=== PATIENT | female | born 1970 | race Two or more races ===

== ENCOUNTER 2025-09-07 18:36 | Emergency (ER) | payer OTHER ==
[~2025-09-07] VITALS: Ht 162.6 cm; Wt 77.1 kg
[2025-09-07] MEDS ORDERED: VASOTEC2.5 MG (18:50)
[2025-09-07 18:52] VITALS: BP 137/87; O2SAT 99
[2025-09-07] MEDS ORDERED: CEFTRIAXONE SODIUM 1,000 MG VIAL IV ONE (19:30)
[2025-09-07] MEDS ORDERED: CETIRIZINE HCL 5 MG/5 ML ML PO ONE (19:30)
[2025-09-07] MEDS ORDERED: KETOROLAC TROMETHAMINE 30 MG VIAL IV ONE (19:30)
[2025-09-07] MEDS ORDERED: CETIRIZINE HCL 5MG/5ML BLIST.PACK PO ONE (19:43)
[2025-09-07] MEDS ORDERED: KETOROLAC TROMETHAMINE 30 MG VIAL ONE (19:43)
[2025-09-07] MEDS ORDERED: CEFTRIAXONE SODIUM 1,000 MG VIAL ONE (19:44)
[2025-09-07 20:27] LABS: BASO % 0.4 % (0.1-1.2); EOS # 0.15 (0.04-0.54); EOS % 2.7 % (0.7-7.0); LYMPH # 1.71 (1.18-3.74); LYMPH % 31.0 % (19.3-53.1); MEAN PLATELET VOLUME 9.60 fl (9.4-12.4); MONO # 0.65 (0.24-0.82); MONO % 11.8 % (4.7-12.5); NEUT # 2.97 (1.56-6.13); NEUT % 53.9 % (34.0-71.1); RED CELL DISTRIBUTION WIDTH 13.2 % (11.6-14.4)
[2025-09-07 21:07] LABS: COVID-19 AG NEGATIVE (NEGATIVE)
[2025-09-07] MEDS ORDERED: ZYRTEC10 MG PO (21:23)
[2025-09-07] MEDS ORDERED: AMOX-CLAV 875-1 EAC1 PO (21:23)
[2025-09-07] MEDS ORDERED: BENZONATATE200 M1 PO (21:28)
== END 2025-09-07 21:33 ==
LOC: ER 18:36
PROVIDERS: General Practice
DX: J06.9 Acute upper respiratory infection, unspecified (principal); J00 Acute nasopharyngitis [common cold]; R05.8 Other specified cough; R50.9 Fever, unspecified; I10 Essential (primary) hypertension; Z20.822 Contact with and (suspected) exposure to COVID-19